=== PATIENT | male | born 1955 | race Caucasian/White ===

== ENCOUNTER 2021-10-29 09:24 | Outpatient (REF) | payer OTHER, SELFPAY ==
--- NOTE | ~2021-10-29 | US_ITS ---
EXAMINATION: US RETROPERITONEAL LIMITED (AORTA) CLINICAL INFORMATION: Evaluate for abdominal aortic aneurysm. COMPARISON: Abdominal aortic ultrasound on 09/16/2017 TECHNIQUE: Olvera-scale, color Doppler and spectral Doppler evaluation of the abdominal aorta. FINDINGS: There is atherosclerotic disease. The measurements of the aorta in maximum AP and transverse dimensions respectively are as follows: Proximal: 2.9 x 2.4 cm. Mid: 2.0 x 1.9 cm. Distal: 1.6 x 2.1 cm. PSV: 56 cm/s. The measurements of the common iliac arteries in maximum AP and TRV dimensions are as follows: Right Common Iliac Artery: 1.1 x 0.8 cm. Left Common Iliac Artery: 1.2 x 1.0 cm. US/US abdominal aortic aneurysm IMPRESSION: No abdominal aortic or iliac artery aneurysm.
[2021-10-29 11:09] LABS: Hematocrit 46.7 % (42.0-52.0); Hemoglobin 14.9 g/dl (14.0-18.0); Mean Corpuscular HGB Conc 31.9 g/dl (31.0-36.0); Mean Corpuscular Hemoglobin 27.2 pg (27.0-33.0); Mean Corpuscular Volume 85.2 fL (80.0-98.0); Mean Platelet Volume 12.4 fL (9.4-12.4); Platelet Count 221 X10*3/uL (160-400); Red Blood Count 5.48 X10*6/uL (4.60-5.80); Red Cell Distribution Width 15.2 % (11.0-16.0); White Blood Count 8.1 X10*3/uL (4.8-10.8)
[2021-10-29 12:18] LABS: Alanine Aminotransferase 28 U/L (0-40); Albumin Level 4.2 g/dL (3.5-5.0); Alkaline Phosphatase 112 U/L (39-117); Anion Gap 14 (12-20); Aspartate Amino Transferase 16 U/L (5-37); Bilirubin Total 0.2 mg/dL (0.0-1.0); Blood Urea Nitrogen 21 mg/dL (9-16); Calcium 9.4 mg/dL (8.4-10.2); Carbon Dioxide 26 mmol/L (22-29); Chloride 107 mmol/L (96-108); Cholesterol 126 mg/dL; Estimated Glomerular Filt Rate 54; Glucose Random 124 mg/dL (60-115); HDL Cholesterol 36 mg/dL; LDL Cholesterol Calculated 78 mg/dl; Potassium 4.5 mmol/L (3.3-5.1); Sodium 142 mmol/L (135-145); Total Protein 6.7 g/dL (6.5-8.0); Triglycerides 62 mg/dL
== END 2021-10-29 09:25 | disposition home or self-care (01) ==
LOC: HO.US 09:24
PROVIDERS: Absent Provider Internal Medicine Geriatric Medicine; PCP Nurse Practitioner Primary Care; Visit Provider Nurse Practitioner Primary Care
DX: I71.4 Abdominal aortic aneurysm, without rupture (principal); E78.00 Pure hypercholesterolemia, unspecified; I10 Essential (primary) hypertension; I63.9 Cerebral infarction, unspecified; I73.9 Peripheral vascular disease, unspecified; Z72.0 Tobacco use; Z79.899 Other long term (current) drug therapy
CPT/HCPCS: 36415; 76706; 80053; 80061; 85027

== ENCOUNTER 2021-11-02 10:14 | Outpatient (REF) | payer OTHER, SELFPAY ==
--- NOTE | ~2021-11-02 | US_ITS ---
EXAMINATION: US EXTRACRANIAL CAROTID DUPLEX, BILATERAL CLINICAL INFORMATION: Cerebral infarcts COMPARISON: None TECHNIQUE: Real-time ultrasound and Doppler techniques (integrating B-mode 2-D vascular images, Doppler spectral analysis and color-flow Doppler imaging) were utilized to interrogate the extracranial carotid arteries, the vertebral arteries and proximal subclavian arteries bilaterally. The degree of stenosis is determined by criteria similar to NASCET. FINDINGS: Right Side: 1. There is mild atherosclerotic plaque seen in the bifurcation/proximal ICA region. 2. The common carotid artery PSV proximally is 123 cm/s and distally 99 cm/s. 3. The proximal internal carotid artery velocities are 96 cm/s systolic and 21 cm/s diastolic. 4. The proximal external carotid artery PSV is 130 cm/s. 5. The vertebral artery shows antegrade flow. 6. The subclavian artery waveforms are normal. Left Side: 1. There is mild atherosclerotic plaque seen in the bifurcation/proximal ICA region. 2. The common carotid artery PSV proximally is 127 cm/s and distally 77 cm/s. 3. The proximal internal carotid artery velocities are 77 cm/s systolic and 26 cm/s diastolic. 4. The proximal external carotid artery PSV is 119 cm/s. 5. The vertebral artery shows antegrade flow. 6. The subclavian artery waveforms are normal. US/US carotid duplex BI IMPRESSION: 1. RIGHT: Minimal, non-hemodynamically significant stenosis of the proximal right internal carotid artery corresponding to a 0-49% stenosis by velocity criteria. 2. LEFT: Minimal, non-hemodynamically significant stenosis of the proximal left internal carotid artery corresponding to a 0-49% stenosis by velocity criteria.
== END 2021-11-02 10:15 | disposition home or self-care (01) ==
LOC: HO.HMGCX 10:14
PROVIDERS: Visit Provider Nurse Practitioner Primary Care
DX: I63.9 Cerebral infarction, unspecified (principal)
CPT/HCPCS: 93880

== ENCOUNTER 2021-12-20 10:16 | Outpatient (REF) | payer OTHER, SELFPAY ==
--- NOTE | ~2021-12-20 | XR_ITS ---
EXAMINATION: XR SHOULDER, LEFT CLINICAL INFORMATION: Pain left shoulder COMPARISON: None TECHNIQUE: AP external rotation, Grashey, scapular Y, and axillary views of the left shoulder. FINDINGS: The glenohumeral joint and AC joint space is preserved. There is a small calcification along the left rotator cuff insertion. No visible acute fracture or dislocation seen. The soft tissues are normal. XR/XR shoulder LT min 2V IMPRESSION: Calcific left rotator cuff tendinitis.
== END 2021-12-20 10:17 | disposition home or self-care (01) ==
LOC: HO.HOSX 10:16
PROVIDERS: Visit Provider Physician Assistant
DX: M75.102 Unspecified rotator cuff tear or rupture of left shoulder, not specified as traumatic (principal)
CPT/HCPCS: 73030; 99202; J1040

== ENCOUNTER 2022-07-26 14:00 | Outpatient (RCR) | payer OTHER, SELFPAY | END 2022-09-06 10:39 | disposition home or self-care (01) | LOC: HO.PTCHIC 14:00 | PROVIDERS: PCP Nurse Practitioner Primary Care; Visit Provider Nurse Practitioner Primary Care | DX: M25.512 Pain in left shoulder (principal) | CPT/HCPCS: 97110; 97140; 97161 ==

== ENCOUNTER → 2022-08-12 12:45 | Outpatient (BNVA) | payer OTHER, SELFPAY | PROVIDERS: PCP Nurse Practitioner Primary Care; Visit Provider Internal Medicine | DX: M75.102 Unspecified rotator cuff tear or rupture of left shoulder, not specified as traumatic (principal); M75.22 Bicipital tendinitis, left shoulder | CPT/HCPCS: 20550; 99202 ==

== ENCOUNTER → 2022-09-06 11:16 | Outpatient (BNVA) | payer OTHER, SELFPAY | PROVIDERS: PCP Nurse Practitioner Primary Care; Visit Provider Internal Medicine | DX: M75.22 Bicipital tendinitis, left shoulder (principal) | CPT/HCPCS: Q3014 ==

== ENCOUNTER → 2022-11-15 10:21 | Outpatient (BNVA) | payer OTHER, SELFPAY | PROVIDERS: PCP Nurse Practitioner Primary Care; Visit Provider Internal Medicine | DX: M75.22 Bicipital tendinitis, left shoulder (principal) | CPT/HCPCS: 20550; J2795; J3301 ==

== ENCOUNTER 2023-06-02 13:59 | Outpatient (AMB) | payer OTHER, SELFPAY ==
[2023-06-02 14:07] VITALS: BP 160/77; PULSE 78; O2SAT 96; BMI 29.8
--- NOTE | 2023-06-02 14:07 | MHC.OFFVIS ---
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 Patient was previously seen in this office by Dr. Steve for left biceps tendonitis in October 2022. Patient reports last cortisone injections continue to provide him pain relief in his left upper arm. Patient reports chronic hip and right medial knee pain that has been worsening with walking or climbing stairs. He has stabbing pain and localized tenderness upon light palpation of right groin and right medial knee areas. Patient reports previous thrombectomy in [facility] for blood clot ~2017 with stenting and is taking Plavix since then. He also presents with bilateral tenderness in the projection of both greater trochanteric bursas and requests steroid injects today. Patient is taking tramadol and applied heating pads with no pain relief. We will proceed with imaging of his hips and right knee. 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 Denies any fever, abdominal pain, weakness, calf tenderness, bladder or bowel dysfunction or saddle anesthesia. PRIOR 11/15/22 Dr. Steve: 67-year-old male presenting today for a follow-up of repeat biceps tendonitis injection. Denies any recent cough, cold, infection, fever or other significant changes in medical history since last office visit. Past Procedures: 08/12/22: Left Therapeutic Bicipital Tendon Injection ? 80% relief. 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 High cholesterol PAD (peripheral artery disease) Tobacco abuse Hypertension Cerebrovascular accident On statin therapy Social History Patient Tobacco Use Status: Current everyday Tobacco user Cigarettes Per Day: 15 Current occupational status: retired Current occupation: right handed Review of Systems Const All systems reviewed & are unremarkable except as noted in HPI and below Physical Exam Vital Signs: Last Vital Signs Pulse 78 06/02/23 14:07 BP 160/77 H 06/02/23 14:07 Pulse Ox 96 06/02/23 14:07 Oxygen Delivery Method Room Air 06/02/23 14:07 BMI result Body Mass Index 29.8 General: Appears afebrile. Alert and oriented. Mood and affect appropriate. Follows and participates in conversation appropriately. Respiratory effort is unlabored. Able to transition from sit to stand unassisted. Uses cane with ambulation. Ambulates with bilaterally normal heel strike and toe off. Back/Spine/Pelvis Cervical Spine: loss of normal cervical lordosis and No Cervical spine tenderness Thoracic/Lumbar Spine: thoracic and lumbar spine normal to inspection, Lasegue's sign negative, straight leg raise negative bilaterally, pain with thoraco-lumbar ROM, No paraspinal muscle tenderness, No thoracic spinal tenderness and No lumbar spinal tenderness Pelvis: no buttock tenderness Sacroiliac joints: bilaterally nontender Extrem General: Yes capillary refill normal, Yes no clubbing, cyanosis or edema and Yes no calf tenderness Right lower extremity: hip/thigh (well healed scars with mild keloid formation. +groin pain with I/E rotation) Details: normal to inspection and tenderness Location: of the hip Location: laterally, posterolaterally and over the greater trochanter; no swelling, no crepitus and no unusual warmth and knee Details: normal to inspection, tenderness Location: of the medial joint line, normal ROM and crepitus; no swelling, no ecchymosis, no deformity and no unusual warmth Left lower extremity: hip/thigh Details: normal to inspection, tenderness Location: of the hip Location: laterally and over the great trochanter and normal ROM; no swelling, no ecchymosis, no crepitus and no unusual warmth Results Reviewed Results Reviewed: No imaging results are available for review. Assessment & Plan Assessment & Plan (1) Right knee pain: Code(s): M25.561 - Pain in right knee (2) Right hip pain: Code(s): M25.551 - Pain in right hip (3) Greater trochanteric bursitis of both hips: Code(s): M70.61 - Trochanteric bursitis, right hip; M70.62 - Trochanteric bursitis, left hip Plan Will obtain bilateral hips and right knee x-rays to assess for degree of degenerative changes prior to interventions. Script provided for gabapentin 300 mg at bedtime. Side effects and precautions were reviewed this patient. Tentatively schedule for bilateral GTB steroid injections with local and fluoroscopy. Expectations, risks and benefits were reviewed. Patient on anticoagulation (Clopidogrel) and instructions given on when to pause with prescribing physician permission. Patient is aware he will be contacted to schedule this procedure. All questions were answered and the patient is in agreement of plan. Follow-up for xray review and sooner as needed. Orders: Orders XR hip BI w PEL1V Today M25.551 - Pain in right hip XR knee RT 3V Today M25.561 - Pain in right knee Medications: New gabapentin 300 mg PO BEDTIME 30 days 30 caps 0RF pain M25.551 - Pain in right hip, M25.561 - Pain in right knee Coding Level of Care Code Est Pt Level 4 (21324) Diagnoses Right knee pain M25.561 Right hip pain M25.551 Greater trochanteric bursitis of both hips M70.61; M70.62
== END 2023-06-02 14:29 | disposition home or self-care (01) ==
PROVIDERS: PCP Nurse Practitioner Primary Care; Visit Provider Nurse Practitioner Family
DX: M25.561 Pain in right knee (principal); M25.551 Pain in right hip; M70.61 Trochanteric bursitis, right hip; M70.62 Trochanteric bursitis, left hip
CPT/HCPCS: 99214

== ENCOUNTER → 2023-06-02 13:59 | Outpatient (BNVA) | payer OTHER, SELFPAY | PROVIDERS: PCP Nurse Practitioner Primary Care; Visit Provider Nurse Practitioner Family | DX: M25.551 Pain in right hip (principal); M70.61 Trochanteric bursitis, right hip; M70.62 Trochanteric bursitis, left hip; M25.561 Pain in right knee; I73.9 Peripheral vascular disease, unspecified | CPT/HCPCS: 99212 ==

== ENCOUNTER 2023-06-03 09:00 | Outpatient (REF) | payer OTHER, SELFPAY ==
--- NOTE | ~2023-06-03 | XR_ITS ---
EXAMINATION: XR AP PELVIS AND BILATERAL HIPS XR KNEE, RIGHT CLINICAL INFORMATION: Pain in right knee. Pain right hip. COMPARISON: None available. TECHNIQUE: AP view of the pelvis as well as AP and frog lateral views of bilateral hips. AP, lateral and sunrise views of the right knee. FINDINGS: RIGHT KNEE: No significant joint effusion. Extensive vascular calcifications with surgical clips in the soft tissues along the posterior leg. Mild medial joint space narrowing. Minimal spurring along the medial aspect of patella. Sclerotic focus overlying the medial femoral condyle, possibly representing a bone island. AP PELVIS AND BILATERAL HIPS: The bones are diffusely demineralized. Degenerative changes in the imaged lower lumbar spine. Vascular stent overlies the lower lumbar spine and sacrum on the left. Moderate degenerative changes in the bilateral hips with joint space narrowing and hypertrophic change. Alignment at the hip joints preserved. XR/XR knee RT 3V IMPRESSION: 1. Mild degenerative changes in the right knee. 2. Moderate degenerative changes in the bilateral hips. MRI recommended for further evaluation if there is concern for fracture or other underlying pathology.
--- NOTE | ~2023-06-03 | XR_ITS ---
EXAMINATION: XR AP PELVIS AND BILATERAL HIPS XR KNEE, RIGHT CLINICAL INFORMATION: Pain in right knee. Pain right hip. COMPARISON: None available. TECHNIQUE: AP view of the pelvis as well as AP and frog lateral views of bilateral hips. AP, lateral and sunrise views of the right knee. FINDINGS: RIGHT KNEE: No significant joint effusion. Extensive vascular calcifications with surgical clips in the soft tissues along the posterior leg. Mild medial joint space narrowing. Minimal spurring along the medial aspect of patella. Sclerotic focus overlying the medial femoral condyle, possibly representing a bone island. AP PELVIS AND BILATERAL HIPS: The bones are diffusely demineralized. Degenerative changes in the imaged lower lumbar spine. Vascular stent overlies the lower lumbar spine and sacrum on the left. Moderate degenerative changes in the bilateral hips with joint space narrowing and hypertrophic change. Alignment at the hip joints preserved. XR/XR hip BI w PEL1V IMPRESSION: 1. Mild degenerative changes in the right knee. 2. Moderate degenerative changes in the bilateral hips. MRI recommended for further evaluation if there is concern for fracture or other underlying pathology.
== END 2023-06-03 09:01 | disposition home or self-care (01) ==
LOC: HO.XRAY 09:00
PROVIDERS: PCP Nurse Practitioner Primary Care; Visit Provider Nurse Practitioner Family
DX: M25.551 Pain in right hip (principal); M25.561 Pain in right knee
CPT/HCPCS: 73521; 73562

== ENCOUNTER 2023-07-04 13:01 | Outpatient (REF) | payer OTHER, SELFPAY ==
--- NOTE | ~2023-07-04 | MM_ITS ---
EXAMINATION: BONE DENSITOMETRY CLINICAL INDICATION: Screening for osteoporosis. COMPARISON: This is the patient's baseline examination. TECHNIQUE: Using a [employer] DXA System (software version: 13.1) manufactured by [employer], dual-energy x-ray absorptiometry was performed of the lumbar spine and left hip. The images are of good technical quality. Summary results are attached. FINDINGS: LEFT FEMUR, NECK: BMD 0.945 g/cm2, Z-score 0.2, T-score -1.0, normal. LEFT FEMUR, TOTAL: BMD 1.034 g/cm2, Z-score 0.2, T-score -0.5, normal. AP SPINE L1-L4: BMD 1.082 g/cm2, Z-score -0.8, T-score -1.2, osteopenia. IDENTIFIED RISK FACTORS: Alcohol (3 or more units per day), tobacco use (current smoker). HISTORY OF FRACTURE: None listed. MEDICATIONS: None listed. MM/XR DEXA axial skeleton IMPRESSION: 1. DIAGNOSIS: Osteopenia based on the lowest T-score value of -1.2 in the lumbar spine applying World Health Organization criteria. 2. 10-YEAR FRACTURE RISK PREDICTION, FRAX: Major osteoporotic fracture (clinical spine, forearm, hip or shoulder) 3.8%. Hip fracture 1.2%. 3. Treatment Recommendations: NOF guidelines recommend consideration for treatment in postmenopausal women and men age 50 and older presenting with the following: -A hip or vertebral (clinical or morphometric) fracture. -T-score less than or equal to -2.5 at the femoral neck or spine after appropriate evaluation to exclude secondary causes. -Low bone mass at the hip or spine and a 10-year fracture probability by FRAX of greater than or equal to 3% for hip fracture or greater than or equal to 20% for major osteoporotic fracture based on the [place] adapted WHO algorithm. 4. Other Recommendations: All treatment decisions require clinical judgment and consideration of individual patient factors, including patient preferences, comorbidities, previous drug use, risk factors not captured in the FRAX model (e.g. frailty, falls, vitamin D deficiency, increased bone turnover, interval significant decline in bone density) and possible under or overestimation of fracture risk by FRAX. Additional medical evaluation for secondary cause of low bone mineral density may be appropriate. FUTURE SCAN RECOMMENDATION: People with diagnosed cases of osteoporosis or at high risk for fracture should have regular bone mineral density tests. For patients eligible for Medicare, routine testing is allowed once every 2 years. The testing frequency can be increased to one year for patients who have rapidly progressing disease, those who are receiving or discontinuing medical therapy to restore bone mass, or have additional risk factors.
== END 2023-07-04 13:02 | disposition home or self-care (01) ==
LOC: HO.MAMMO 13:01
PROVIDERS: PCP Nurse Practitioner Primary Care; Visit Provider Nurse Practitioner Primary Care
DX: Z13.820 Encounter for screening for osteoporosis (principal); R93.7 Abnormal findings on diagnostic imaging of other parts of musculoskeletal system; M85.852 Other specified disorders of bone density and structure, left thigh
CPT/HCPCS: 77080

== ENCOUNTER 2023-07-23 05:59 | Outpatient (REF) | payer OTHER, SELFPAY ==
--- NOTE | ~2023-07-23 | FL_ITS ---
EXAMINATION: XR FLUOROSCOPY WITH IMAGES CLINICAL INFORMATION: Pain in right hip. COMPARISON: None available. TECHNIQUE: Fluoroscopy Supervised By: Dr. Pelon Steve. Fluoroscopy Time: 0.1 minute. Cumulative Dose: 1.91 mGy. DAP: 0.347 Gycm2. Images: 3. FINDINGS: Images demonstrate needle placement and contrast injection right hip joint and over the right greater trochanter FL/FL guidance in treatment room IMPRESSION: Fluoroscopy guidance for pain management procedure.
== END 2023-07-23 06:00 | disposition home or self-care (01) ==
LOC: CF 05:59
PROVIDERS: Visit Provider Internal Medicine
DX: M70.61 Trochanteric bursitis, right hip (principal); M70.62 Trochanteric bursitis, left hip; M25.551 Pain in right hip
CPT/HCPCS: 20610; J2795; J3301; Q9967

== ENCOUNTER 2023-07-23 08:55 | Outpatient (AMB) | payer OTHER, SELFPAY ==
--- NOTE | 2023-07-23 09:00 | A.OFFVIS_ITS ---
Intake Vital Signs 07/23/23 09:01 07/23/23 10:01 BP 134/66 144/76 H Blood Pressure Location Lt brachial Lt brachial Position Sitting Sitting Respiration 12 12 Pulse 78 71 Pulse Source Pulse Oximeter Pulse Oximeter Pulse Oximetry (%) 99 99 Oxygen Delivery Method Room Air Room Air Intake Visit Reasons: right intraarticular hip/right GTB inj Allergies No Known Allergies [No Known Allergies*] Allergy (Verified 07/23/23 09:01) HPI right intraarticular hip/right GTB inj HPI Details Patient presents for scheduled procedure. Denies any recent cough, cold, infection, fever or other significant changes in medical history since last office visit. 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 High cholesterol PAD (peripheral artery disease) Tobacco abuse Hypertension Cerebrovascular accident On statin therapy Social History Patient Tobacco Use Status: Current everyday Tobacco user Cigarettes Per Day: 15 Current occupational status: retired Current occupation: right handed Physical Exam Vital Signs: Last Vital Signs Pulse 71 07/23/23 10:01 Resp 12 07/23/23 10:01 BP 144/76 H 07/23/23 10:01 Pulse Ox 99 07/23/23 10:01 Oxygen Delivery Method Room Air 07/23/23 10:01 Office Procedures Joint Injection/Drain Joint Injection/Drain Details: Hip Intra-articular Injection, fluoroscopy guided, Right After informed written consent was obtained, the patient was placed in the lateral position. Pre-procedure oxygen saturation, heart rate, and blood pressure were recorded. The skin was prepped with Chloroprep, and draped in a sterile fashion. With the use of fluroscopy the hip joint was identified. With a 25-gauge 1.5 hypodermic needle 0.75% lidocaine was injected subcutaneously over the entry site. A 22-gauge 3.5 spinal needle was then advanced toward the junction of the joint capsule and femoral neck. Once in position, and after negative aspiration, 0.5mL of Isovue was injected outlining the joint capsule followed by injection of 50 mg Kenalog mixed with 0.5% lidocaine (3.5 mL total). There was no evidence of paresthesias throughout needle placement. The stylet was replaced. Greater Trochanteric Bursa Injection, fluoroscopy guided, Right With the use of fluroscopy the greater trochanter was identified. The 22-gauge 3.5 spinal needle was slightly withdrawn and then advanced toward the trochanteric bursa. Once in position, and after negative aspiration, 0.5mL of Isovue was injected outlining the bursa followed by injection of 30 mg Kenalog mixed with 0.5% ropivacaine (2.5 mL total). There was no evidence of paresthesias throughout needle placement. The stylet was replaced and then the needle was withdrawn. The patient tolerated the procedure well and there was no evidence of procedural complications. The patient was observed in the procedure room for 20 minutes, vitals were stable, and discharged in stable condition. EBL: <1cc Coding 42585 - Large joint 29389 - Glenohumeral/Tronchanteric Bursa/Intraarticular Procedure code (CPT) selection complete Assessment & Plan Assessment & Plan (1) Greater trochanteric bursitis of both hips: Code(s): M70.61 - Trochanteric bursitis, right hip; M70.62 - Trochanteric bursitis, left hip (2) Right hip pain: Code(s): M25.551 - Pain in right hip Plan Patient is status post right intra-articular hip and GTB steroid injections. Patient tolerated procedure well and was discharged home in stable condition with discharge instructions. All questions were answered. We will follow-up via telephone or in clinic to assess response to therapy. A follow-up appointment was made during today's visit. Orders: Orders FL guidance in treatment room 07/23/23 M25.551 - Pain in right hip Coding Level of Care Code Procedure Only Diagnoses Greater trochanteric bursitis of both hips M70.61; M70.62 Right hip pain M25.551 CPT Codes Coding - 55475 Large joint: 87845 - Large joint ([id number]) Coding - Joint 7: 46819 - Glenohumeral/Tronchanteric Bursa/Intraarticular ([id number])
[2023-07-23 09:01] VITALS: BP 134/66; PULSE 78; RESP 12; O2SAT 99
[2023-07-23 10:01] VITALS: BP 144/76; PULSE 71; RESP 12; O2SAT 99
== END 2023-07-23 09:51 | disposition home or self-care (01) ==
LOC: HO.PMCPRC 08:55
PROVIDERS: PCP Nurse Practitioner Primary Care; Visit Provider Internal Medicine
DX: M25.551 Pain in right hip (principal)
CPT/HCPCS: 20610; 77002

== ENCOUNTER 2023-08-15 09:15 | Outpatient (AMB) | payer OTHER, SELFPAY ==
--- NOTE | 2023-08-15 09:29 | A.OFFVIS_ITS ---
Intake Vital Signs 08/15/23 09:31 Height 5 ft 5 in Weight 177 lb BMI 29.5 BP 148/75 H Blood Pressure Location Lt brachial Position Sitting Respiration 14 Pulse 90 Pulse Source Pulse Oximeter Pulse Oximetry (%) 98 Oxygen Delivery Method Room Air Intake Visit Reasons: s/p right hip/GTB inj/lvm Allergies No Known Allergies [No Known Allergies*] Allergy (Verified 08/15/23 09:32) Medication List - Last Reconciled 08/15/23 by Enedelia Salazar LPN acetaminophen 500 mg PO ONCE amlodipine 5 mg PO DAILY atorvastatin 80 mg PO DAILY clopidogrel 75 mg PO DAILY gabapentin 300 mg PO BEDTIME 30 days tramadol 50 mg PO BID PRN valsartan 160 mg PO DAILY HPI s/p right hip/GTB inj/lvm HPI Details 67-year-old male who presents today to t he office for a status post right hip and GTB injections. The patient reports 100% relief following the procedure. He states that his left side started worsening. He is amenable to receive the injection on the left side today in the office. Past Procedures: 07/23/23: Hip Intra-articular Injection, fluoroscopy guided, Right: 100% relief. 07/23/23: Greater Trochanteric Bursa Inj ection, fluoroscopy guided, Right: 100% relief. 08/12/22: Left Therapeutic Bicipital Tend on Injection ? 80% relief. 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 High cholesterol PAD (peripheral artery disease) Tobacco abuse Hypertension Cerebrovascular accident On statin therapy Social History Patient Tobacco Use Status: Current everyday Tobacco user Cigarettes Per Day: 15 Current occupational status: retired Current occupation: right handed Review of Systems Const All systems reviewed & are unremarkable except as noted in HPI and below Physical Exam Vital Signs: Last Vital Signs Pulse 90 08/15/23 09:31 Resp 14 08/15/23 09:31 BP 148/75 H 08/15/23 09:31 Pulse Ox 98 08/15/23 09:31 Oxygen Delivery Method Room Air 08/15/23 09:31 BMI result Body Mass Index 29.5 General: Appears afebrile. Alert and oriented. Mood and affect appropriate. Follows and participates in conversation appropriately. Respiratory effort is unlabored. Able to transition from sit to stand unassisted. Ambulates with bilaterally normal heel strike and toe off. Office Procedures Joint Injection/Drain Joint Injection/Drain Details: Greater Trochanteric Bursa Injection, ultrasound guided, Left Primary Site: other (left greater trochanteric bursa) Prep: site was prepped using sterile technique Injected: 40 mg of, Kenalog, with 3 mL of (0.5% ropivacaine) and other (Around the left greater trochanter) Approach Used: other (Lateral approach under ultrasound guidance) Procedure: The patient tolerated the procedure well Coding Details: The patient tolerated the procedure well. Patient denied any lower extremity weakness or numbness. Patient was observed for 30 min and was discharged after fulfilling the standard discharge criteria. An ultrasound image of the injection was taken and stored in the permanent record. - Glenohumeral/Tronchanteric Bursa/Intraarticular (Left ultrasound guided) Procedure code (CPT) selection complete Results Reviewed Results Reviewed: No imaging is available for review. Assessment & Plan Assessment & Plan (1) Greater trochanteric bursitis of both hips: Code(s): M70.61 - Trochanteric bursitis, right hip; M70.62 - Trochanteric bursitis, left hip Plan Patient is status post left greater trochanteric bursa injection, ultrasound guided. Patient tolerated procedure well and was discharged home in stable condition with discharge instructions. All questions were answered. Follow-up as needed. Scribed for Dr. Steve by Alex Vallejo, medical insurance claims specialist, on 08/15/2023. I, Dr. Steve, have personally reviewed and agree with the information entered by the scribe. Coding Level of Care Code Procedure Only Diagnoses Greater trochanteric bursitis of both hips M70.61; M70.62 CPT Codes Coding - Joint 7: 55692 - Glenohumeral/Tronchanteric Bursa/Intraarticular ([id number])
[2023-08-15 09:31] VITALS: BP 148/75; PULSE 90; RESP 14; O2SAT 98; BMI 29.5
== END 2023-08-15 10:23 | disposition home or self-care (01) ==
PROVIDERS: PCP Nurse Practitioner Primary Care; Visit Provider Internal Medicine
DX: M70.62 Trochanteric bursitis, left hip (principal)
CPT/HCPCS: 20611

== ENCOUNTER → 2023-08-15 09:15 | Outpatient (BNVA) | payer OTHER, SELFPAY | PROVIDERS: PCP Nurse Practitioner Primary Care; Visit Provider Internal Medicine | DX: M70.62 Trochanteric bursitis, left hip (principal); M70.61 Trochanteric bursitis, right hip | CPT/HCPCS: 20611; J0665; J3301 ==

== ENCOUNTER 2024-02-27 08:36 | Outpatient (REF) | payer OTHER, SELFPAY ==
[2024-02-27 11:33] LABS: Alanine Aminotransferase 52 U/L (0-40); Albumin Level 4.4 g/dL (3.5-5.0); Alkaline Phosphatase 107 U/L (39-117); Anion Gap 13 (12-20); Aspartate Amino Transferase 25 U/L (5-37); Bilirubin Total 0.6 mg/dL (0.0-1.0); Blood Urea Nitrogen 18 mg/dL (9-16); Calcium 9.6 mg/dL (8.4-10.2); Carbon Dioxide 26 mmol/L (22-29); Chloride 107 mmol/L (96-108); Cholesterol 130 mg/dL (<200); Estimated Glomerular Filt Rate > 60; Glucose Random 104 mg/dL (60-115); HDL Cholesterol 42 mg/dL (>40); LDL Cholesterol Calculated 64 mg/dL (<100); Potassium 4.1 mmol/L (3.3-5.1); Sodium 142 mmol/L (135-145); Triglycerides 124 mg/dL (<150)
[2024-02-27 11:35] LABS: Prostate Specific Antigen 0.52 ng/mL (<0.05-4.0)
== END 2024-02-27 08:37 | disposition home or self-care (01) ==
LOC: HO.HHCL 08:36
PROVIDERS: Visit Provider Nurse Practitioner Primary Care
DX: I16.0 Hypertensive urgency (principal); M85.88 Other specified disorders of bone density and structure, other site; N40.0 Benign prostatic hyperplasia without lower urinary tract symptoms; I25.10 Atherosclerotic heart disease of native coronary artery without angina pectoris; Z12.5 Encounter for screening for malignant neoplasm of prostate
CPT/HCPCS: 36415; 80053; 80061; 82306; 84153